=== PATIENT | female | born 1955 | race Native Hawaiian/Other Pacific Islander ===

== ENCOUNTER 2016-07-22 10:46 | Outpatient (CLI) | payer OTHER ==
[~2016-07-22 10:46] MED LIST: ACTOS15 MG PO; ALBUTEROL2 MG/5 ML PO; ALPR0.5T24 PO; AZEL137S; CEFD300C2 PO; CEPH500C20 PO; ESTR0.6211 PO; FERROUS SULF325 M1 OR; FLUT0.05 NAS; HYDR25TA15 PO; HYDR5TAB9 PO; KAOPECTATE262 MG/15 OR; LEVO0.0218 PO; LOPRESSOR100 MG PO; LORA10TA3 PO; MELOXICAM7.5 MG OR; METO50TA27 PO; PIOG30TA PO; RANI150T78 PO; ROBITUSSIN15 MG/5 ML OR; TRIAMCINOLON0.0252 TOP; TRIM800T12 PO; Z-PAK PO
== END 2016-07-22 19:29 | disposition home or self-care (01) ==
LOC: RAD 10:46
DX: S72.142D Displaced intertrochanteric fracture of left femur, subsequent encounter for closed fracture with routine healing (principal)

== ENCOUNTER 2017-01-04 07:57 | Outpatient (CLI) | payer OTHER ==
[2017-01-04 09:07] LABS: POTASSIUM 4.9 mmol/L (3.6-5.2); SODIUM 143 mmol/L (136-145)
== END 2017-01-04 09:00 | disposition home or self-care (01) ==
LOC: LABW 07:57
PROVIDERS: Internal Medicine
DX: E11.9 Type 2 diabetes mellitus without complications (principal); E03.8 Other specified hypothyroidism
CPT/HCPCS: 36415; 80053; 80061; 81000; 82043; 82570; 83036; 84439; 84443

== ENCOUNTER 2017-03-02 11:02 | Emergency (ER) | payer OTHER ==
[~2017-03-02] VITALS: Ht 157.5 cm; Wt 73.9 kg
[2017-03-02 11:15] VITALS: TEMP 98
[2017-03-02 12:12] LABS: PLATELET COUNT 188 K/uL (152-353)
[2017-03-02 12:41] LABS: POTASSIUM 4.7 mmol/L (3.6-5.2); SODIUM 135 mmol/L (136-145)
[2017-03-02 12:47] VITALS: BP 147/82
== END 2017-03-02 12:47 | disposition home or self-care (01) ==
LOC: ED 11:02
DX: M47.892 Other spondylosis, cervical region (principal); M50.321 Other cervical disc degeneration at C4-C5 level; I10 Essential (primary) hypertension
CPT/HCPCS: 36415; 80053; 85027; 99283

== ENCOUNTER 2017-04-29 07:50 | Outpatient (CLI) | payer OTHER | END 2017-04-29 09:00 | disposition home or self-care (01) | LOC: MRI 07:50 | DX: M47.22 Other spondylosis with radiculopathy, cervical region (principal) ==

== ENCOUNTER 2017-05-13 10:46 | Outpatient (CLI) | payer OTHER ==
[2017-05-13] MEDS ORDERED: OMEPRAZOLE20 M1 OR (16:11)
[2017-05-13] MEDS ORDERED: METFTAB PO (16:11)
[2017-05-13] MEDS ORDERED: SIMV10TA PO (16:12)
== END 2017-05-13 19:12 | disposition home or self-care (01) ==
LOC: US 10:46
DX: E04.1 Nontoxic single thyroid nodule (principal)

== ENCOUNTER 2017-05-13 14:34 | Inpatient (IN) | payer OTHER ==
[2017-05-13] VITALS (7 sets, daily range): BP systolic 191–221; BP diastolic 66–118; TEMP 97.8–98
[~2017-05-13] VITALS: Ht 162.6 cm; Wt 68.1 kg
[2017-05-13] MEDS ORDERED: METFTAB PO (16:11)
[2017-05-13] MEDS ORDERED: OMEPRAZOLE20 M1 OR (16:11)
[2017-05-13] MEDS ORDERED: SIMV10TA PO (16:12)
[2017-05-13 17:29] LABS: PLATELET COUNT 183 K/uL (152-353); POTASSIUM 4.4 mmol/L (3.6-5.2); SODIUM 141 mmol/L (136-145)
[2017-05-14 01:17] VITALS: BP 177/74; TEMP 98; Ht 162.6 cm; Wt 68.1 kg
[2017-05-14 04:00] VITALS: BP 135/67; TEMP 97.8
[2017-05-14 08:00] VITALS: BP 150/90; TEMP 98.7
[2017-05-14 12:00] VITALS: BP 141/75; TEMP 98.5
[2017-05-14 16:00] VITALS: BP 146/72; TEMP 98.6
[2017-05-14 20:00] VITALS: BP 181/83; TEMP 98.5
[2017-05-15] VITALS: BP 146/48; TEMP 98.9
[2017-05-15 04:00] VITALS: BP 187/89; TEMP 98
[2017-05-15 05:58] LABS: PLATELET COUNT 172 K/uL (152-353)
[2017-05-15 06:02] LABS: POTASSIUM 3.8 mmol/L (3.6-5.2); SODIUM 142 mmol/L (136-145)
[2017-05-15 08:00] VITALS: BP 177/89; TEMP 98.7
[2017-05-15 12:00] VITALS: BP 184/85; TEMP 98.6
[2017-05-15 16:00] VITALS: BP 183/71; TEMP 98.4
[2017-05-15 20:00] VITALS: BP 147/66; TEMP 98.9
[2017-05-16] VITALS: BP 147/66; BP 167/77; TEMP 98.3; TEMP 98.9
[2017-05-16 04:00] VITALS: BP 152/64; TEMP 97.9
[2017-05-16 05:30] LABS: PLATELET COUNT 158 K/uL (152-353)
[2017-05-16 05:44] LABS: POTASSIUM 3.8 mmol/L (3.6-5.2); SODIUM 139 mmol/L (136-145)
[2017-05-16 08:00] VITALS: BP 168/88; TEMP 98.5
[2017-05-16] MEDS ORDERED: SIMV10TA PO (09:10)
== END 2017-05-16 09:35 | disposition home or self-care (01) | DRG 305 ==
LOC: ED 14:34 → MED/SURG 18:27
PROVIDERS: Internal Medicine; ADMIT Specialist
DX: I16.0 Hypertensive urgency (principal); G95.89 Other specified diseases of spinal cord; E11.9 Type 2 diabetes mellitus without complications; F41.1 Generalized anxiety disorder; E03.8 Other specified hypothyroidism; E04.1 Nontoxic single thyroid nodule
CPT/HCPCS: 36415; 80053; 81000; 82948; 85027; 96374; 99220; 99284; G0378; J3490

== ENCOUNTER 2017-12-27 07:19 | Outpatient (CLI) | payer OTHER ==
[~2017-12-27 07:19] MED LIST changes: +METFTAB PO; +OMEPRAZOLE20 M1 OR; +SIMV10TA PO
[2017-12-27 07:46] LABS: PLATELET COUNT 177 K/uL (152-353)
== END 2017-12-27 22:08 | disposition home or self-care (01) ==
LOC: LABW 07:19
PROVIDERS: Internal Medicine
DX: E11.9 Type 2 diabetes mellitus without complications (principal)
CPT/HCPCS: 36415; 80053; 80061; 81000; 82043; 82570; 83036; 84439; 84443; 85027

== ENCOUNTER 2018-07-28 10:51 | Outpatient (CLI) | payer OTHER ==
[2018-07-28 11:16] LABS: PLATELET COUNT 214 K/uL (152-353)
[2018-07-28 11:50] LABS: POTASSIUM 4.7 mmol/L (3.6-5.2)
== END 2018-07-28 19:48 | disposition home or self-care (01) ==
LOC: LABW 10:51
PROVIDERS: Internal Medicine
DX: E11.9 Type 2 diabetes mellitus without complications (principal); E03.9 Hypothyroidism, unspecified
CPT/HCPCS: 36415; 80053; 80061; 82043; 82570; 83036; 83540; 84439; 84443; 85027

== ENCOUNTER 2018-10-28 08:18 | Outpatient (CLI) | payer OTHER ==
[2018-10-28 08:45] LABS: PLATELET COUNT 233 K/uL (152-353)
[2018-10-28 09:08] LABS: POTASSIUM 4.7 mmol/L (3.6-5.2)
== END 2018-10-28 22:34 | disposition home or self-care (01) ==
LOC: LABW 08:18
PROVIDERS: Internal Medicine
DX: Z00.00 Encounter for general adult medical examination without abnormal findings (principal); E11.9 Type 2 diabetes mellitus without complications; Z13.820 Encounter for screening for osteoporosis
CPT/HCPCS: 36415; 80053; 80061; 81000; 82043; 82306; 82570; 83036; 84439; 84443; 85027

== ENCOUNTER 2018-10-31 10:06 | Outpatient (CLI) | payer OTHER | END 2018-10-31 19:25 | disposition home or self-care (01) | LOC: MAMMO 10:06 | DX: Z12.31 Encounter for screening mammogram for malignant neoplasm of breast (principal); Z13.820 Encounter for screening for osteoporosis; N95.8 Other specified menopausal and perimenopausal disorders ==

== ENCOUNTER 2018-12-12 20:30 | Emergency (ER) | payer OTHER ==
[~2018-12-12] VITALS: Ht 152.4 cm; Wt 68.0 kg
[2018-12-12] MEDS ORDERED: VITAMIN D2000 UNI3 PO (21:05)
[2018-12-12] MEDS ORDERED: LOSA50TA PO (21:05)
[2018-12-12] MEDS ORDERED: PANTOPRAZOLE 40MG TA PO (21:05)
[2018-12-12] MEDS ORDERED: HYDR25TA60 PO (21:05)
[2018-12-12] MEDS ORDERED: SERT50TA PO (21:06)
[2018-12-12] MEDS ORDERED: SERTRALINE HYDR50 MG PO (21:07)
[2018-12-12] MEDS ORDERED: GABA300C2 PO (21:07)
[2018-12-12 22:54] VITALS: BP 194/86; TEMP 98.2
== END 2018-12-12 22:54 | disposition home or self-care (01) ==
LOC: ED 20:30
DX: S63.591A Other specified sprain of right wrist, initial encounter (principal); S53.492A Other sprain of left elbow, initial encounter; W01.0XXA Fall on same level from slipping, tripping and stumbling without subsequent striking against object, initial encounter; Y92.89 Other specified places as the place of occurrence of the external cause
CPT/HCPCS: 99283

== ENCOUNTER 2019-04-29 08:29 | Outpatient (CLI) | payer OTHER ==
[~2019-04-29 08:29] MED LIST changes: +GABA300C2 PO; +HYDR25TA60 PO; +LOSA50TA PO; +PANTOPRAZOLE 40MG TA PO; +SERT50TA PO; +SERTRALINE HYDR50 MG PO; +VITAMIN D2000 UNI3 PO
[2019-04-29 09:05] LABS: POTASSIUM 4.7 mmol/L (3.6-5.2)
[2019-04-29 09:57] LABS: PLATELET COUNT 189 K/uL (152-353)
== END 2019-04-29 19:52 | disposition home or self-care (01) ==
LOC: LABW 08:29
PROVIDERS: Internal Medicine
DX: E11.9 Type 2 diabetes mellitus without complications (principal); E03.8 Other specified hypothyroidism
CPT/HCPCS: 36415; 80053; 81000; 83036; 85027

== ENCOUNTER 2019-11-21 09:15 | Outpatient (CLI) | payer OTHER ==
[2019-11-21 10:13] LABS: PLATELET COUNT 196 K/uL (152-353)
[2019-11-21 10:23] LABS: POTASSIUM 4.5 mmol/L (3.6-5.2)
== END 2019-11-21 19:09 | disposition home or self-care (01) ==
LOC: LABW 09:15
PROVIDERS: Internal Medicine
DX: E11.9 Type 2 diabetes mellitus without complications (principal)
CPT/HCPCS: 36415; 80053; 80061; 81000; 82043; 82570; 83036; 84439; 84443; 85027

== ENCOUNTER 2020-03-18 11:56 | Emergency (ER) | payer OTHER ==
[~2020-03-18] VITALS: Ht 152.4 cm; Wt 68.0 kg
[2020-03-18 11:56] VITALS: TEMP 98.9
[2020-03-18 12:24] LABS: PLATELET COUNT 206 K/uL (152-353)
[2020-03-18 12:37] LABS: PARTIAL THROMBOPLASTIN TIME 30.6 SECONDS (24.5-33.6)
[2020-03-18 13:02] LABS: POTASSIUM 5.3 mmol/L (3.6-5.2)
[2020-03-18 13:16] LABS: SODIUM 112 mmol/L (136-145)
[2020-03-18 14:00] VITALS: BP 118/92
== END 2020-03-18 14:20 | disposition short-term general hospital (02) ==
LOC: ED 11:56
PROVIDERS: Hospitalist
PROC: 0T9B70Z Drainage of Bladder with Drainage Device, Via Natural or Artificial Opening (ICD-10-PCS; principal; 2020-03-18)
DX: N17.8 Other acute kidney failure (principal); I63.89 Other cerebral infarction; R39.2 Extrarenal uremia
CPT/HCPCS: 36415; 51702; 80053; 80320; 81000; 82550; 82553; 83605; 83880; 84484; 85027; 85610; 85730; 87040; 93005; 96360; 96365; 96366; 96375; 99284; J1885; J1956

== ENCOUNTER 2020-06-04 09:10 | Outpatient (CLI) | payer OTHER ==
[2020-06-04 09:40] LABS: PLATELET COUNT 167 K/uL (152-353)
[2020-06-04 09:58] LABS: POTASSIUM 4.7 mmol/L (3.6-5.2)
== END 2020-06-04 22:24 | disposition home or self-care (01) ==
LOC: LABW 09:10
PROVIDERS: ATTEND Internal Medicine
DX: E11.9 Type 2 diabetes mellitus without complications (principal)
CPT/HCPCS: 36415; 80053; 80061; 81000; 83036; 84439; 84443; 85027

== ENCOUNTER 2020-12-19 07:58 | Outpatient (CLI) | payer OTHER ==
[2021-01-03 10:46] LABS: PLATELET COUNT 158 K/uL (152-353)
[2021-01-03 10:47] LABS: POTASSIUM 4.8 mmol/L (3.6-5.2)
== END 2020-12-19 16:00 | disposition home or self-care (01) ==
LOC: LABW 07:58
PROVIDERS: ATTEND Internal Medicine
DX: E11.9 Type 2 diabetes mellitus without complications (principal); E03.8 Other specified hypothyroidism
CPT/HCPCS: 36415; 80053; 80061; 81000; 82043; 82570; 83036; 84439; 84443; 85027

== ENCOUNTER 2021-10-22 15:45 | Emergency (ER) | payer OTHER ==
[~2021-10-22] VITALS: Ht 152.4 cm; Wt 68.0 kg
[2021-10-22 15:50] VITALS: BP 181/76; TEMP 98
== END 2021-10-22 17:15 | disposition home or self-care (01) ==
LOC: ED 15:45
PROC: 2W39X1Z Immobilization of Left Upper Extremity using Splint (ICD-10-PCS; principal; 2021-10-22)
DX: S42.255A Nondisplaced fracture of greater tuberosity of left humerus, initial encounter for closed fracture (principal); M25.552 Pain in left hip; W18.39XA Other fall on same level, initial encounter; Y92.89 Other specified places as the place of occurrence of the external cause
CPT/HCPCS: 96372; 99283; J1885

== ENCOUNTER 2021-12-30 17:51 | Outpatient (CLI) | payer OTHER | END 2021-12-30 20:40 | disposition home or self-care (01) | LOC: LAB 17:51 | PROVIDERS: ATTEND Internal Medicine | DX: E11.9 Type 2 diabetes mellitus without complications (principal) | CPT/HCPCS: 80061; 83036 ==

== ENCOUNTER 2022-07-27 12:29 | Outpatient (CLI) | payer OTHER ==
[2022-07-27 12:56] LABS: PLATELET COUNT 170 K/uL (152-353)
[2022-07-27 13:22] LABS: POTASSIUM 5.1 mmol/L (3.6-5.2)
== END 2022-07-27 19:25 | disposition home or self-care (01) ==
LOC: LAB 12:29
PROVIDERS: ATTEND Internal Medicine
DX: E11.9 Type 2 diabetes mellitus without complications (principal); E03.8 Other specified hypothyroidism
CPT/HCPCS: 80053; 80061; 81002; 84439; 84443; 85027

== ENCOUNTER 2023-01-28 13:22 | Outpatient (CLI) | payer OTHER ==
[2023-01-28 14:05] LABS: PLATELET COUNT 195 K/uL (152-353)
[2023-01-28 14:18] LABS: POTASSIUM 4.5 mmol/L (3.6-5.2)
== END 2023-01-28 20:55 | disposition home or self-care (01) ==
LOC: LAB 13:22
PROVIDERS: ATTEND Internal Medicine
DX: E03.8 Other specified hypothyroidism (principal); E11.9 Type 2 diabetes mellitus without complications
CPT/HCPCS: 80053; 80061; 81002; 83036; 84439; 84443; 85027